=== PATIENT | female | born 1945 | race Caucasian/White ===

== ENCOUNTER 2016-09-18 20:28 | Emergency (ER) | payer MEDICARE ==
[~2016-09-18] VITALS: Ht 157.5 cm; Wt 85.0 kg
[2016-09-18 20:35] VITALS: BP 118/56; PULSE 52; RESP 16; TEMP 98.1; O2SAT 96
--- NOTE | 2016-09-18 20:49 | PD ---
HPI Chief Complaint: Syncope/Near-Syncope Time Seen by Provider: 20:40 Travel History International Travel<30 days: No Contact w/Intl Traveler<30days: No Traveled to known affect area: No History of Present Illness HPI The patient is a 71 year old female who presents to the [facility] emergency department with a history of reportedly being out watching a parade when she had sudden onset of diaphoresis. She reports that she also felt nauseated, however she did not vomit. She proceeded to have a syncopal event, however she did not fall, she was easily the ground. Upon ambulance services arrival the patient was noted to have sinus bradycardia with a heart rate ranging from 40-53. Her blood pressure was 90/70. 2 IVs were placed and the patient was given 900 mL of normal saline prior to arrival. The patient's blood sugar prior to arrival was 112. The patient denies having any chest pressure, chest pain, or shortness of breath. She denies having any vomiting or diarrhea recently. She does report that her recent history was complicated by a week ago tripping and falling in her yard striking her head. The patient has a bruise underneath the right eye related to this and a scar over the right side of the forehead related to a laceration that was repaired. She reports that she did have a CT scan of the brain done at that time that was reportedly negative for bleed. She denies having any headache/worsening headache since the trauma. She denies having any neck pain, paresthesias, numbness, or weakness to her extremities. The patient reports that when she drinks alcohol she normally drinks 1 drink, however this evening she did have 2 martinis. She reports that she has been otherwise drinking fluids well. On review of systems, the patient denies any recent fevers fevers, cough, congestion, neck pain, chest pain, shortness of breath, diarrhea, urinary symptoms, or neurologic symptoms. [facility] Past Medical History Narrative Medical The patient's past medical history is significant for hypertension. The patient is on metoprolol. She reports that her heart rate is usually low around 60. He denies any recent changes in her blood pressure medication regimen. The patient has a history of hypothyroid disorder, arthritis Diminished Hearing: No Tetanus Vaccination: < 5 Years Influenza Vaccination: Yes ?: Not Past Surgical History Narrative Surgical The patient's past surgical history is significant for thyroidectomy, hysterectomy, appendectomy, laparoscopy related to fibroids. Social History Alcohol Use: Yes (2 martinis this evening) Tobacco Use: No Substance Use: No Allergies-Medications (Allergen,Severity, Reaction): Coded Allergies: Penicillin (Verified Allergy, Mild, RASH, 09/18/16) Reported Meds & Prescriptions Reported Meds & Active Scripts Active Reported Glucosamine & Chondroitin Cap (Glucosa Greene 2Kcl/Chondroitin Greene) 1 Each Capsule 1 Cap PO DAILY Calcium (Calcium Carbonate) 600 Mg Tab 600 Mg PO DAILY Centrum Silver Adult 50+ (Multiple Vitamins W/ Minerals) 1 Tab Tab 1 Tab PO DAILY Etodolac 500 Mg Tab 500 Mg PO BID Synthroid (Levothyroxine Sodium) 125 Mcg Tab 125 Mcg PO DAILY Losartan-Hydrochlorothiazide 50-12.5 Mg Tab 1 Tab PO DAILY Toprol XL (Metoprolol Succinate) 100 Mg Tab 150 Mg PO DAILY Review of Systems Except as stated in HPI: all other systems reviewed are Neg General / Constitutional: No: Fever Eyes: No: Visual changes HENT: No: Headaches Cardiovascular: Positive: Syncope, No: Chest Pain or Discomfort Respiratory: No: Shortness of Breath Gastrointestinal: Positive: Nausea, No: Vomiting, Diarrhea, Abdominal Pain, Changes in Bowel Habits, Indigestion, Loss of Appetite Genitourinary: No: Dysuria Musculoskeletal: No: Pain Skin: No Rash Neurologic: Positive: Dizziness, Syncope, No: Weakness, Focal Abnormalities, Change in Mentation, Sensory Disturbance Psychiatric: No: Depression Endocrine: No: Polydipsia Hematologic/Lymphatic: No: Easy Bruising Physical Exam Narrative General: The patient is a well-developed well-nourished female in no acute distress. Head and Neck exam: Head is normocephalic. The patient has evidence of an older appearing bruise underneath the right eye related to her prior trip and fall over a week ago. Eyes: EOMI, pupils are equal round and reactive to light. Nose: Midline septum with pink mucous membranes Mouth: Dentition unremarkable. Moist mucus membranes. Posterior oropharynx is not erythematous. No tonsillar hypertrophy. Uvula midline. Airway patent. Neck: No palpable lymphadenopathy. No nuchal rigidity. No thyromegaly. Cardiovascular: Sinus bradycardia with heart rate and the 40s to 50s without murmurs, gallops, or rubs. Lungs: Clear to auscultation bilaterally. No wheezes, rhonchi, or rales. Abdomen: Soft, without tenderness to palpation in all 4 quadrants of the abdomen. No guarding, rebound, or rigidity. Normal bowel sounds are audible. No tenderness on palpation of McBurney's point. Negative [place] sign. Extremities: No clubbing, cyanosis, or edema. 2+ pulses in all 4 extremities. No calf tenderness on palpation. Back: No costovertebral angle tenderness to palpation. Neurologic Exam: Cranial nerves 2-12 were intact on exam. Strength is 5/5 in all 4 extremities. No sensory deficits noted. Skin Exam: No rash noted. Intact skin that is warm and dry. Data Data Last Documented VS Vital Signs Date Time Temp Pulse Resp B/P Pulse Ox O2 Delivery O2 Flow Rate FiO2 09/18/16 21:13 53 110/53 55 111/56 62 118/55 09/18/16 21:13 95 09/18/16 20:39 Room Air 09/18/16 20:35 98.1 16 Orders Electrocardiogram (09/18/16 20:40) Complete Blood Count With Diff (09/18/16 20:40) Comprehensive Metabolic Panel (09/18/16 20:40) Creatine Kinase (Cpk) (09/18/16 20:40) Ckmb (Isoenzyme) Profile (09/18/16 20:40) Troponin I (09/18/16 20:40) B-Type Natriuretic Peptide (09/18/16 20:40) Prothrombin Time / Inr (Pt) (09/18/16 20:40) Act Partial Throm Time (Ptt) (09/18/16 20:40) Lipase (09/18/16 20:40) Urinalysis - C+S If Indicated (09/18/16 20:40) Magnesium (Mg) (09/18/16 20:40) Thyroid Stimulating Hormone (09/18/16 20:40) Chest, Single Ap (09/18/16 20:40) Ct Brain W/O Iv Contrast(Rout) (09/18/16 20:40) Iv Access Insert/Monitor (09/18/16 20:40) Ecg Monitoring (09/18/16 20:40) Oximetry (09/18/16 20:40) Orthostatic Vital Signs (09/18/16 20:49) Sodium Chlorid 0.9% 500 Ml Inj (Ns 500 M (09/18/16 21:15) Ondansetron Inj (Zofran Inj) (09/18/16 21:15) Sodium Chlorid 0.9% 500 Ml Inj (Ns 500 M (09/18/16 22:00) Labs Laboratory Tests Test 09/18/16 09/18/16 20:45 22:05 White Blood Count 5.1 TH/MM3 Red Blood Count 4.24 MIL/MM3 Hemoglobin 12.8 GM/DL Hematocrit 38.8 % Mean Corpuscular Volume 91.4 FL Mean Corpuscular Hemoglobin 30.1 PG Mean Corpuscular Hemoglobin 32.9 % Concent Red Cell Distribution Width 13.0 % Platelet Count 126 TH/MM3 Mean Platelet Volume 9.7 FL Neutrophils (%) (Auto) 58.6 % Lymphocytes (%) (Auto) 26.5 % Monocytes (%) (Auto) 9.4 % Eosinophils (%) (Auto) 4.4 % Basophils (%) (Auto) 1.1 % Neutrophils # (Auto) 3.0 TH/MM3 Lymphocytes # (Auto) 1.4 TH/MM3 Monocytes # (Auto) 0.5 TH/MM3 Eosinophils # (Auto) 0.2 TH/MM3 Basophils # (Auto) 0.1 TH/MM3 CBC Comment DIFF FINAL Differential Comment Prothrombin Time 10.6 SEC Prothromb Time International 1.0 RATIO Ratio Activated Partial 23.4 SEC Thromboplast Time Sodium Level 138 MEQ/L Potassium Level 3.1 MEQ/L Chloride Level 103 MEQ/L Carbon Dioxide Level 21.9 MEQ/L Anion Gap 13 MEQ/L Blood Urea Nitrogen 15 MG/DL Creatinine 0.74 MG/DL Estimat Glomerular Filtration 77 ML/MIN Rate Random Glucose 92 MG/DL Calcium Level 8.4 MG/DL Magnesium Level 1.9 MG/DL Total Bilirubin 0.7 MG/DL Aspartate Amino Transf 16 U/L (AST/SGOT) Alanine Aminotransferase 17 U/L (ALT/SGPT) Alkaline Phosphatase 51 U/L Total Creatine Kinase 59 U/L Troponin I LESS THAN 0.02 NG/ML B-Type Natriuretic Peptide 148 PG/ML Total Protein 5.9 GM/DL Albumin 3.2 GM/DL Lipase 118 U/L Thyroid Stimulating Hormone 3.650 uIU/ML 3rd Gen Urine Color YELLOW Urine Turbidity CLEAR Urine pH 7.0 Urine Specific [place] 1.011 Urine Protein TRACE mg/dL Urine Glucose (UA) NEG mg/dL Urine Ketones NEG mg/dL Urine Occult Blood NEG Urine Nitrite NEG Urine Bilirubin LARGE Urine Urobilinogen LESS THAN 2.0 MG/DL Urine Leukocyte Esterase TRACE Urine RBC 1 /hpf Urine WBC 3 /hpf Urine Squamous Epithelial 1 /hpf Cells Urine Bacteria OCC /hpf Urine Hyaline Casts 4 /lpf Urine Mucus FEW /lpf Microscopic Urinalysis Comment CULT NOT INDICATED MDM Medical Decision Making Medical Screen Exam Complete: Yes Emergency Medical Condition: Yes Medical Record Reviewed: Yes Interpretation(s) Last Impressions Head CT [id number]/18/[id number] Signed Impressions: Service Date/Time: Sunday, September 18, 2016 21:29 - CONCLUSION: No acute disease. Randy Bray Jr., MD Chest X-Ray [id number]/18/[id number] Signed Impressions: Service Date/Time: Sunday, September 18, 2016 20:39 - CONCLUSION: No acute disease. Randy Bray Jr., MD Differential Diagnosis Vasovagal syncope, versus orthostasis, versus dehydration, versus cardiac arrhythmia, versus electrolyte derangement Narrative Course During the course of the patients emergency department visit, the patients history, examination, and differential diagnosis were reviewed with the patient. The patient had IV access obtained and blood work sent for analysis. The patient was placed on a cardiac rn with oximetry and blood pressure monitoring. Orthostatic vital signs have been ordered. An ECG was done on arrival. The patient's ECG reveals a sinus bradycardia with a heart rate of 52 , QRS duration is 116 ms representing an intraventricular conduction delay, no acute ST segment elevation. QTC is 450 ms. Orthostatic vital signs were unremarkable. The patient was initially provided normal saline bolus of 500 mL 1, Zofran 4 mg IV. The patient was provided a second saline bolus of 500 mL. The patients laboratory studies were reviewed and remarkable for a white count of 5.1, hemoglobin 12.8, platelets 126 with 9.4 monocytes, CMP is remarkable for a potassium of 3.1 which will be supplemented orally, GFR 77, calcium 8.4, BNP is 148, albumin 3.2, lipase 118, PT 10.6, PTT 23.4, CPK 59, troponin I less than 0.02, TSH 3.65. Urinalysis was unremarkable. Radiology studies were reviewed and remarkable for a chest x-ray that shows no acute disease, CT scan of the brain shows no acute abnormality. The patient was able to ambulate back and 4 to the bathroom without any further symptoms. I suspect of the patient's symptoms are related to alcohol ingestion with heat exposure and poor by mouth fluid intake. The patient was instructed to avoid alcohol. The patient was instructed to avoid the heat. The patient was instructed to push fluids with water and electrolyte rich solution such as Gatorade. The patient reports feeling back at her baseline. The patient prefers to be discharged home. Again, the patient reports that she has a baseline level of bradycardia that she is aware of that is usually in the 50s to 60s. The patient is resting comfortably and feels better, is alert and in no distress. The patients results and examination findings were discussed with the patient. The repeat examination is unremarkable and benign. The history, exam, diagnostic testing, and current condition do not suggest any significant pathology to warrant further testing, continued ED treatment, admission, or surgical evaluation at this point. The vital signs have been stable. The patient does not have uncontrollable pain, intractable vomiting, or other significant symptoms. The patient's condition is stable and appropriate for discharge. The patient will pursue further outpatient evaluation with a primary care physician or other designated or consulting physician as indicated in the discharge instructions. The patient expressed understanding and was agreeable with this plan. Diagnosis Primary Impression: Syncope Qualified Code: T67.1XXA - Heat syncope, initial encounter Referrals: Primary Care Physician 3 days Patient Instructions: General Instructions, Syncope (ED) Med/Other Pt SpecificInfo: No Change to Meds Disposition: 01 DISCHARGE HOME Condition: Stable Latasha Terrell MD Sep 18, 2016 20:49
--- NOTE | 2016-09-18 21:02 | RADRPT ---
EXAM DATE/TIME: 09/18/2016 20:39 [facility] COMPARISON: No previous studies available for comparison. INDICATIONS : Syncopal episode today. Patient got dizzy and passed out. MEDICAL HISTORY : Hypertension. SURGICAL HISTORY : None. ENCOUNTER: Initial ACUITY: 1 day PAIN SCORE: 0/10 LOCATION: Bilateral chest FINDINGS: A single view of the chest demonstrates the lungs to be symmetrically aerated without evidence of mas s, infiltrate or effusion. The cardiomediastinal contours are unremarkable. Osseous structures are intact. CONCLUSION: No acute disease. Randy Bray Jr., MD on September 18, 2016 at 21:00 Board Certified Radiologist. This report was verified electronically.
[2016-09-18 21:13] VITALS: BP_SYST 110; BP_SYST 111; BP_SYST 118; BP_DIAS 53; BP_DIAS 55; BP_DIAS 56; O2SAT 95
[2016-09-18 21:14] LABS: BASOPHIL # 0.1 TH/MM3 (0-0.2); BASOPHIL % 1.1 % (0.0-2.0); EOSINOPHIL # 0.2 TH/MM3 (0-0.4); EOSINOPHIL % 4.4 % (0.0-4.0); HEMATOCRIT 38.8 % (35.0-46.0); HEMO FLAGS DIFF FINAL; LYMPH % 26.5 % (9.0-44.0); LYMPHOCYTE # 1.4 TH/MM3 (1.0-4.8); MEAN CELL VOLUME 91.4 FL (80.0-100.0); MEAN CORPUSCULAR HEMOGLOBIN 30.1 PG (27.0-34.0); MEAN CORPUSCULAR HGB CONC 32.9 % (32.0-36.0); MONO % 9.4 % (0.0-8.0); NEUT % 58.6 % (16.0-70.0); PLATELET COUNT 126 TH/MM3 (150-450); RED BLOOD COUNT 4.24 MIL/MM3 (4.00-5.30); WHITE BLOOD COUNT 5.1 TH/MM3 (4.0-11.0)
[2016-09-18] MEDS ORDERED: SODIUM CHLORID 0.9% 500 ML INJ 500 ML IV ONE ×2 (21:15→22:00)
[2016-09-18] MEDS ORDERED: ONDANSETRON HCL 4 MG/2 ML VIAL IV PUSH ONE (21:15)
[2016-09-18 21:27] LABS: APTT (PATIENT) 23.4 SEC (24.3-30.1); PROTHROMBIN TIME - PATIENT 10.6 SEC (9.8-11.6)
[2016-09-18 21:32] LABS: ANION GAP 13 MEQ/L (5-15); AST (GOT) 16 U/L (15-37); BICARBONATE 21.9 MEQ/L (21.0-32.0); BLOOD UREA NITROGEN 15 MG/DL (7-18); CHLORIDE 103 MEQ/L (98-107); GLOMERULAR FILTRATION RATE 77 ML/MIN (>89); MAGNESIUM 1.9 MG/DL (1.5-2.5); POTASSIUM 3.1 MEQ/L (3.5-5.1); SODIUM (NA) 138 MEQ/L (136-145)
[2016-09-18 21:33] LABS: ALT (GPT) 17 U/L (10-53)
--- NOTE | 2016-09-18 21:35 | RADRPT ---
EXAM DATE/TIME: 09/18/2016 21:29 [facility] COMPARISON: No previous studies available for comparison. INDICATIONS : Syncope. RADIATION DOSE: 32.67 CTDIvol (mGy) MEDICAL HISTORY : None SURGICAL HISTORY : None. ENCOUNTER: Initial ACUITY: 1 day PAIN SCALE: 0/10 LOCATION: cranial TECHNIQUE: Multiple contiguous axial images were obtained of the head. Using automated exposure control and adj ustment of the mA and/or kV according to patient size, radiation dose was kept as low as reasonably a chievable to obtain optimal diagnostic quality images. DICOM format image data is available electro nically for review and comparison. FINDINGS: CEREBRUM: The ventricles are normal for age. No evidence of midline shift, mass lesion, hemorrhage or acute in farction. No extra-axial fluid collections are seen. POSTERIOR FOSSA: The cerebellum and brainstem are intact. The 4th ventricle is midline. The cerebellopontine angle i s unremarkable. EXTRACRANIAL: The visualized portion of the orbits is intact. SKULL: The calvaria is intact. No evidence of skull fracture. CONCLUSION: No acute disease. Randy Bray Jr., MD on September 18, 2016 at 21:33 Board Certified Radiologist. This report was verified electronically.
[2016-09-18 21:42] LABS: ALKALINE PHOSPHATASE 51 U/L (45-117); TOTAL BILIRUBIN ADULT 0.7 MG/DL (0.2-1.0)
[2016-09-18 21:56] LABS: CREATINE KINASE 59 U/L (26-192)
[2016-09-18] MEDS ORDERED: LEVO.125 PO (22:06)
[2016-09-18] MEDS ORDERED: CALC600T25 PO (22:06)
[2016-09-18] MEDS ORDERED: ETOD500T PO (22:06)
[2016-09-18] MEDS ORDERED: GLUC500C36 PO (22:06)
[2016-09-18] MEDS ORDERED: LOSA50TA2 PO (22:06)
[2016-09-18] MEDS ORDERED: TOPR100T PO (22:06)
[2016-09-18] MEDS ORDERED: MULT1TAB PO (22:06)
[2016-09-18 22:30] LABS: BACTERIA, URINE OCC /hpf; BLOOD, URINE NEG (NEG); COMMENT (UR) CULT NOT INDICATED; CULTURE IF INDICATED CULT NOT INDICATED; GLUCOSE,URINE NEG (NEG); HYALINE CAST, URINE 4 /lpf (RARE); KETONE, URINE NEG (NEG); MUCUS URINE FEW /lpf (OCC); NITRITE,URINE NEG (NEG); SQUAMOUS EPITHELIAL CELL URINE 1 /hpf (0-5); URINE COLOR YELLOW (YELLW/STRAW)
--- NOTE | 2016-09-19 11:11 | EKG ---
Date Performed: 09/18/2016 Time Performed: 20:54:11 PTAGE: 71 years EKG: SINUS BRADYCARDIA MODERATE INTRAVENTRICULAR CONDUCTION DELAY BORDERLINE ECG NO PREVIOUS TRACING DOCTOR: Leonard Villa Interpretating Date/Time 09/19/2016 11:11:28
== END 2016-09-18 23:55 | disposition home or self-care (01) ==
LOC: NEPE 20:28
DX: T67.1XXA Heat syncope, initial encounter (principal); R00.1 Bradycardia, unspecified; R11.0 Nausea; I10 Essential (primary) hypertension; E03.9 Hypothyroidism, unspecified; X30.XXXA Exposure to excessive natural heat, initial encounter; Y93.89 Activity, other specified
CPT/HCPCS: 70450; 71010; 80053; 81001; 82550; 83690; 83735; 83880; 84443; 84484; 85025; 85610; 85730; 93005; 96360; 99285; J7040